=== PATIENT | female | born 1995 | race Caucasian/White ===

== ENCOUNTER 2018-03-29 20:07 | Emergency (ER) | END 2018-03-29 22:20 | disposition home or self-care (01) ==

== ENCOUNTER 2019-02-28 07:19 | Emergency (ER) | payer BC ==
[~2019-02-28] VITALS: Ht 154.9 cm; Wt 65.0 kg
[~2019-02-28 07:19] MED LIST: AMOX1TAB10 PO; METO10TA92 PO; NAPR-985 PO
[2019-02-28 07:21] VITALS: Ht 154.9 cm; Wt 65.0 kg
[2019-02-28] MEDS ORDERED: NITR-58 PO (09:44)
[2019-02-28] MEDS ORDERED: CEFTRIAXONE 1 GM INJ IM ONE (10:00)
[2019-02-28] MEDS ORDERED: LIDOCAINE 1% (MPF) 5 ML VIAL INJ ONE (10:00)
--- NOTE | 2019-02-28 10:19 | ERD ---
ER Documentation Chief Complaint Chief Complaint vaginal bleeding since yesterday HPI 23-year-old female presenting with abdominal cramping and vaginal bleeding times yesterday. Patient has no clots. G2, . Patient is about 18 weeks 6 days and LNMP is October 11. Patient is being seen at [facility] for her OB care. Denies medical problems. NKDA. Surgical history denies. Social history denies ROS All systems reviewed and are negative except as per history of present illness. Medications Home Meds Active Scripts Nitrofurantoin Monohyd Macrocr* (Macrobid*) 100 Mg Capsr, 100 MG PO BID for 14 Days, CAP Prov:KENDELL DARDEN PA-C 02/28/19 Metoclopramide* (Reglan*) 10 Mg Tablet, 10 MG PO Q6 PRN for NAUSEA AND/OR VOMITING, #10 TAB Prov:PASILACHAD MARTÍNEZ F 03/29/18 Naproxen* (Naprosyn*) 500 Mg Tablet, 500 MG PO BID PRN for PAIN AND/OR INFLAMMATION, #30 TAB Prov:PASILABAN,HALLEAR F 03/29/18 Amoxicillin/Potassium Clav (Amox-Clav 875-125 mg Tablet) 875-125 mg Tab, 1 TAB PO BID for 10 Days, #20 TAB Prov:PASILABAN,KLAR F 03/29/18 Allergies Allergies: Coded Allergies: No Known Allergy (Unverified , 10/22/14) PMhx/Soc Hx Alcohol Use: No Hx Substance Use: No Hx Tobacco Use: No FmHx Family History: No diabetes, No coronary disease, No other Physical Exam Vitals Vital Signs Date Temp Pulse Resp B/P (MAP) Pulse Ox O2 O2 Flow FiO2 Time Delivery Rate 02/28/19 98.7 87 18 96/65 (75) 98 07:21 Physical Exam GENERAL: The patient is well-appearing, well-nourished, in no acute distress HEENT: Atraumatic. Conjunctivae are pink. Pupils equal, round, and reactive to light. There is no scleral icterus. Tympanic membranes clear bilaterally. Oropharynx clear. NECK: C-spine is soft and supple. There is no meningismus. There is no cervical lymphadenopathy. CHEST: Clear to auscultation bilaterally. There are no rales, wheezes or rhonchi. HEART: Regular rate and rhythm. No murmurs, clicks, rubs or gallops. ABDOMEN: Normal active bowel sounds. No distention. No tenderness palpation. Result Diagram: 02/28/19814 Results 24 hrs Laboratory Tests Test 02/28/19 08:15 White Blood Count 9.1 10^3/ul Red Blood Count 3.98 10^6/ul Hemoglobin 12.0 g/dl Hematocrit 35.8 % Mean Corpuscular Volume 89.9 fl Mean Corpuscular Hemoglobin 30.2 pg Mean Corpuscular Hemoglobin Concent 33.5 g/dl Red Cell Distribution Width 13.8 % Platelet Count 229 10^3/UL Mean Platelet Volume 10.8 fl Immature Granulocytes % 0.300 % Neutrophils % 72.5 % Lymphocytes % 18.2 % Monocytes % 8.1 % Eosinophils % 0.8 % Basophils % 0.1 % Nucleated Red Blood Cells % 0.0 /100WBC Immature Granulocytes # 0.030 10^3/ul Neutrophils # 6.6 10^3/ul Lymphocytes # 1.7 10^3/ul Monocytes # 0.7 10^3/ul Eosinophils # 0.1 10^3/ul Basophils # 0.0 10^3/ul Nucleated Red Blood Cells # 0.0 10^3/ul Urine Color YELLOW Urine Clarity SLIGHTLY CLOUDY Urine pH 7.0 Urine Specific [place] 1.010 Urine Ketones NEGATIVE mg/dL Urine Nitrite NEGATIVE mg/dL Urine Bilirubin NEGATIVE mg/dL Urine Urobilinogen NEGATIVE mg/dL Urine Leukocyte Esterase 3+ Misbah/ul Urine Microscopic RBC 15 /HPF Urine Microscopic WBC 8 /HPF Urine Squamous Epithelial Cells FEW /HPF Urine Bacteria FEW /HPF Urine Yeast (Budding) FEW /HPF Urine Hemoglobin NEGATIVE mg/dL Urine Glucose NEGATIVE mg/dL Urine Total Protein NEGATIVE mg/dl Beta HCG, Quantitative 87673.0 mIU/ml Current Medications Medications Dose Sig/Lizbet Start Time Status Last (Trade) Ordered Route PRN Stop Time Admin Dose Reason Admin Ceftriaxone 1 gm ONCE ONCE 02/28/19 DC 02/28/19 Sodium IM 10:00 02/28/19 10:16 (Rocephin) 10:01 Lidocaine 5 ml ONCE ONCE 02/28/19 DC 02/28/19 (Xylocaine INJ 10:00 02/28/19 10:16 1% (Mpf)) 10:01 Procedures/MDM DIAGNOSTIC IMAGING REPORT Patient: SENIA MARCOS : 1995 Age: 23 Sex: F MR #: [id number] DOS: 02/28/19 0753 Ordering MD: MARY GRACE DARDEN PA-C Location: [facility] Room/Bed: PROCEDURE: US OB AND ULTRASOUND CERVIX. CLINICAL INDICATION: Size and dates , vaginal bleeding TECHNIQUE: Multiple sonographic images of the pelvis and gravid uterus were obtained. The images were reviewed on a PACS workstation. Transvaginal images of the cervix were also obtained. COMPARISON: No prior studies are available for comparison. FINDINGS: Cervix: Length: 4.5 cm. Closed and competent. Gestation: Single live intrauterine gestation. Cardiac activity: 135 beats per minute. Presentation: Vertex. Placenta: Location: Anterior. Appearance: No previa or abruption. Measurements: BPD = 3.9 cm, 17 weeks and 6 days HC = 15.3 cm, 18 weeks and 2 days AC = 13.3 cm, 18 weeks and 5 days FL = 2.4 cm, 17 weeks and 2 days Gestational Age: AUA estimated gestational age: 18 weeks 0 days LMP estimated gestational age: 18 weeks 6 days AUA estimated date of delivery: 08/01/19 The EFW = 221 g, 9.8%ile based on LMP age. RPTAT: AA IMPRESSION: Single live intrauterine gestation of approximately 18 weeks and 0 days based on ultrasound measurements. ER Course: Urine culture sent. IM Rocephin given in ED. MDM: 23-year-old female presenting with vaginal bleeding and . Patient's exam is non-concerning and ultrasound shows a normal with incompetent cervix. I have low suspicion for labor. Patient has urinary tract infection and received Rocephin. Patient's urine was sent for culture. Patient may be experiencing symptoms secondary to her urinary tract infection. Patient is discharged with strict ER precautions. All questions answered at discharge Departure Diagnosis: Primary Impression: UTI (urinary tract infection) Additional Impression: Vaginal bleeding Condition: Stable Patient Instructions: Understanding Urinary Tract Infections (UTIs) Referrals: COMMUNITY CLINICS YOU HAVE RECEIVED A MEDICAL SCREENING EXAM AND THE RESULTS INDICATE THAT YOU DO NOT HAVE A CONDITION THAT REQUIRES URGENT TREATMENT IN THE EMERGENCY DEPARTMENT. FURTHER EVALUATION AND TREATMENT OF YOUR CONDITION CAN WAIT UNTIL YOU ARE SEEN IN YOUR DOCTORS OFFICE WITHIN THE NEXT 1-2 DAYS. IT IS YOUR RESPONSIBILITY TO MAKE AN APPOINTMENT FOR FOLOW-UP CARE. IF YOU HAVE A PRIMARY DOCTOR --you should call your primary doctor and schedule an appointment IF YOU DO NOT HAVE A PRIMARY DOCTOR YOU CAN CALL OUR PHYSICIAN REFERRAL HOTLINE AT IF YOU CAN NOT AFFORD TO SEE A PHYSICIAN YOU CAN CHOSE FROM THE FOLLOWING [facility] [address] [facility] [address] [facility] [facility] [address] [facility] [address] [facility]. [facility] [address] [facility] [facility]. [address] Additional Instructions: FOLLOW UP WITH YOUR PRIMARY CARE PHYSICIAN TOMORROW.Return to this facility if you are not improving as expected. KENDELL DARDEN PA-C Feb 28, 2019 10:19
[2019-02-28 10:43] VITALS: BP 105/65; PULSE 75; RESP 18
== END 2019-02-28 10:43 | disposition home or self-care (01) ==
LOC: FTE 07:19
DX: O23.42 Unspecified infection of urinary tract in pregnancy, second trimester (principal); Z3A.18 18 weeks gestation of pregnancy
CPT/HCPCS: 36415; 76805; 76817; 81001; 84702; 85025; 86900; 86901; 87086; 96372; 99285; J0696